=== PATIENT | female | born 1990 | race African-American/Black ===

== ENCOUNTER 2016-11-29 23:23 | Observation (INO) | payer MEDICAID ==
[~2016-11-29] VITALS: Ht 160 cm; Wt 75.0 kg
[~2016-11-29 23:23] MED LIST: PANT20 PO; TYLE325T PO
[2016-11-29 23:24] VITALS: BP 144/78; PULSE 53; RESP 16; TEMP 97.9; O2SAT 100
[2016-11-30] VITALS (8 sets, daily range): BP systolic 86–123; BP diastolic 56–79; PULSE 46–79; RESP 17–20; TEMP 96.4–98.3; O2SAT 97–100
[2016-11-30] MEDS ORDERED: SODIUM CHLOR 0.9% 1000 ML INJ 1,000 ML IV SCH (00:52)
--- NOTE | 2016-11-30 00:54 | PD ---
HPI Chief Complaint: GI Complaint Time Seen by Provider: 00:49 Travel History International Travel<30 days: No Contact w/Intl Traveler<30days: No Traveled to known affect area: No History of Present Illness HPI 25-year-old female here for evaluation of right upper quadrant abdominal pain, nausea, and vomiting. Symptoms started 2 hours ago while burping her baby. Pain is described as pressure, moderate, constant, worse with movement and palpation, associated with nausea and a few episodes of vomiting. She was told to the past that she has gallstones. No history of abdominal surgeries. No fevers or chills. No urinary symptoms. No vaginal bleeding or discharge. PFSH Past Medical History Hx Anticoagulant Therapy: No Anemia: Yes Cardiovascular Problems: No Chemotherapy: No Cerebrovascular Accident: No Diabetes: No Diminished Hearing: No Gastrointestinal Disorders: Yes GERD: Yes Headaches: Yes Respiratory: No Immunizations Current: Yes Ulcer: Yes Tetanus Vaccination: Unknown ?: Unknown LMP: 11/11/2016 Menopausal: No : 7 Para: 4 Miscarriage: 3 Ovarian Cysts: Yes Past Surgical History Surgical History: No Previous Surgery Social History Alcohol Use: Yes (occasional ETOH) Tobacco Use: Yes (socially) Substance Use: No Allergies-Medications (Allergen,Severity, Reaction): Coded Allergies: No Known Allergies (Verified , 11/29/16) Reported Meds & Prescriptions Reported Meds & Active Scripts Active No Active Prescriptions or Reported Medications Review of Systems Except as stated in HPI: all other systems reviewed are Neg Physical Exam Narrative GENERAL: Pleasant, well-developed, well-nourished, comfortable, no acute distress. SKIN: Warm and dry. No rash. HEAD: Atraumatic. Normocephalic. EYES: Pupils equal and round. No scleral icterus. No injection or drainage. ENT: Mucous membranes pink and moist. NECK: Trachea midline. No JVD. CARDIOVASCULAR: Regular rate and rhythm. No murmur appreciated. RESPIRATORY: No accessory muscle use. Clear to auscultation. Breath sounds equal bilaterally. GASTROINTESTINAL: Abdomen soft, nondistended. Moderate right upper quadrant tenderness with Geller sign without peritoneal signs. Rest of abdomen is soft and nontender. Normal bowel sounds. MUSCULOSKELETAL: No obvious deformities. No clubbing. No cyanosis. No edema. NEUROLOGICAL: Awake and alert. No obvious cranial nerve deficits. Motor grossly within normal limits. Normal speech. PSYCHIATRIC: Appropriate mood and affect; insight and judgment normal. Data Data Last Documented VS Vital Signs Date Time Temp Pulse Resp B/P Pulse Ox O2 Delivery O2 Flow Rate FiO2 11/30/16 00:44 46 18 117/79 100 Room Air 11/29/16 23:24 97.9 Orders Beta Hcg (Quant/Titer) (11/30/16 00:52) Complete Blood Count With Diff (11/30/16 00:52) Comprehensive Metabolic Panel (11/30/16 00:52) Lipase (11/30/16 00:52) Prothrombin Time / Inr (Pt) (11/30/16 00:52) Act Partial Throm Time (Ptt) (11/30/16 00:52) Urinalysis - C+S If Indicated (11/30/16 00:52) Us Abdomen Gallbladder (11/30/16 ) Iv Access Insert/Monitor (11/30/16 00:52) Ecg Monitoring (11/30/16 00:52) Oximetry (11/30/16 00:52) Morphine Inj (Morphine Inj) (11/30/16 01:00) Ondansetron Inj (Zofran Inj) (11/30/16 01:00) Sodium Chlor 0.9% 1000 Ml Inj (Ns 1000 M (11/30/16 00:52) Sodium Chloride 0.9% Flush (Ns Flush) (11/30/16 01:00) Diphenhydramine Inj (Benadryl Inj) (11/30/16 02:15) Labs Laboratory Tests Test 11/30/16 01:00 White Blood Count 7.3 TH/MM3 Red Blood Count 4.10 MIL/MM3 Hemoglobin 11.5 GM/DL Hematocrit 35.5 % Mean Corpuscular Volume 86.6 FL Mean Corpuscular Hemoglobin 28.1 PG Mean Corpuscular Hemoglobin 32.4 % Concent Red Cell Distribution Width 15.2 % Platelet Count 267 TH/MM3 Mean Platelet Volume 9.6 FL Neutrophils (%) (Auto) 65.6 % Lymphocytes (%) (Auto) 24.7 % Monocytes (%) (Auto) 8.9 % Eosinophils (%) (Auto) 0.5 % Basophils (%) (Auto) 0.3 % Neutrophils # (Auto) 4.8 TH/MM3 Lymphocytes # (Auto) 1.8 TH/MM3 Monocytes # (Auto) 0.6 TH/MM3 Eosinophils # (Auto) 0.0 TH/MM3 Basophils # (Auto) 0.0 TH/MM3 CBC Comment DIFF FINAL Differential Comment Prothrombin Time 11.5 SEC Prothromb Time International 1.0 RATIO Ratio Activated Partial 27.2 SEC Thromboplast Time Sodium Level 143 MEQ/L Potassium Level 3.5 MEQ/L Chloride Level 109 MEQ/L Carbon Dioxide Level 26.7 MEQ/L Anion Gap 7 MEQ/L Blood Urea Nitrogen 12 MG/DL Creatinine 0.86 MG/DL Estimat Glomerular Filtration 97 ML/MIN Rate Random Glucose 94 MG/DL Calcium Level 8.8 MG/DL Total Bilirubin 0.2 MG/DL Aspartate Amino Transf 18 U/L (AST/SGOT) Alanine Aminotransferase 18 U/L (ALT/SGPT) Alkaline Phosphatase 64 U/L Total Protein 7.4 GM/DL Albumin 3.9 GM/DL Lipase 144 U/L Human Chorionic Gonadotropin, LESS THAN 1 Quant MIU/ML MDM Medical Decision Making Medical Screen Exam Complete: Yes Emergency Medical Condition: Yes Medical Record Reviewed: Yes Differential Diagnosis Cholelithiasis, cholecystitis, pancreatitis, pyelonephritis/UTI, Narrative Course Vital signs reviewed. CBC is unremarkable. CMP is unremarkable. Lipase is 144. Beta hCG is negative. UA Right upper quadrant ultrasound: Cholelithiasis, gallbladder wall measuring 4 mm, pericholecystic fluid, findings consistent with cholecystitis. Case discussed with on-call general surgeon Dr. Orellana. The patient will be started on Zosyn. She will be admitted to his service and he will see her in the morning and discuss surgical options with the patient. Patient was made aware of all findings and plan for admission. Diagnosis Primary Impression: Cholecystitis Admitting Information Admitting Physician Requests: Observation Scripts No Active Prescriptions or Reported Meds Wilver Tavera MD Nov 30, 2016 00:54
[2016-11-30] MEDS ORDERED: SODIUM CHLORIDE 0.9% FLUSH 5 ML FLUSH IVF PRN ×2 (01:00→03:00)
[2016-11-30] MEDS ORDERED: MORPHINE SULFATE 4 MG/ML INJ IV PUSH ONE (01:00)
[2016-11-30] MEDS ORDERED: ONDANSETRON HCL 4 MG/2 ML VIAL IVP ONE (01:00)
[2016-11-30 01:26] LABS: AUTOMATED NEUTROPHIL # 4.8 TH/MM3 (1.8-7.7); BASOPHIL % 0.3 % (0.0-2.0); EOSINOPHIL % 0.5 % (0.0-4.0); HEMATOCRIT 35.5 % (35.0-46.0); HEMO FLAGS DIFF FINAL; LYMPH % 24.7 % (9.0-44.0); LYMPHOCYTE # 1.8 TH/MM3 (1.0-4.8); MEAN CELL VOLUME 86.6 FL (80.0-100.0); MEAN CORPUSCULAR HEMOGLOBIN 28.1 PG (27.0-34.0); MEAN CORPUSCULAR HGB CONC 32.4 % (32.0-36.0); MONO % 8.9 % (0.0-8.0); NEUT % 65.6 % (16.0-70.0); PLATELET COUNT 267 TH/MM3 (150-450); RED CELL DISTRIBUTION WIDTH 15.2 % (11.6-17.2); WHITE BLOOD COUNT 7.3 TH/MM3 (4.0-11.0)
[2016-11-30 01:34] LABS: APTT (PATIENT) 27.2 SEC (24.3-30.1); PROTHROMBIN TIME - PATIENT 11.5 SEC (9.8-11.6)
[2016-11-30 01:42] LABS: ALT (GPT) 18 U/L (10-53); ANION GAP 7 MEQ/L (5-15); AST (GOT) 18 U/L (15-37); BICARBONATE 26.7 MEQ/L (21.0-32.0); BLOOD UREA NITROGEN 12 MG/DL (7-18); CHLORIDE 109 MEQ/L (98-107); GLOMERULAR FILTRATION RATE 97 ML/MIN (>89); POTASSIUM 3.5 MEQ/L (3.5-5.1); SODIUM (NA) 143 MEQ/L (136-145)
[2016-11-30 01:46] LABS: ALKALINE PHOSPHATASE 64 U/L (45-117); BETA HCG QUANT LESS THAN 1 MIU/ML (0-5); TOTAL BILIRUBIN ADULT 0.2 MG/DL (0.2-1.0)
[2016-11-30] MEDS ORDERED: diphenhydrAMINE HCL 50 MG/ML VIAL IV PUSH ONE (02:15)
--- NOTE | 2016-11-30 02:46 | RADRPT ---
EXAM DATE/TIME: 11/30/2016 01:43 [facility] COMPARISON: No previous studies available for comparison. INDICATIONS : Abdominal pain. MEDICAL HISTORY : Ovarian cysts. SURGICAL HISTORY : None. ENCOUNTER: Initial ACUITY: 1 day PAIN SCORE: 3/10 LOCATION: Right upper quadrant MEASUREMENTS: LIVER: 17.4 cm length COMMON DUCT: 3 mm RIGHT KIDNEY: 11.2 x 4.9 x 4.2 cm FINDINGS: Multiple gallstones are present with a tiny trace of pericholecystic fluid and gallbladder wall measu res 4 mm. The liver is unremarkable. CONCLUSION: Cholelithiasis and findings may represent cholecystitis. Dominic Castillo MD on November 30, 2016 at 2:43 Board Certified Radiologist. This report was verified electronically.
[2016-11-30] MEDS ORDERED: PIPERACIL-TAZO 3.375 GM PREMIX 50 ML IV ONE (03:00)
[2016-11-30 03:29] LABS: BACTERIA, URINE RARE /hpf; BLOOD, URINE NEG (NEG); COMMENT (UR) CULT NOT INDICATED; CULTURE IF INDICATED CULT NOT INDICATED; GLUCOSE,URINE NEG (NEG); KETONE, URINE NEG (NEG); MUCUS URINE FEW /lpf (OCC); NITRITE,URINE NEG (NEG); PH, URINE 8.5 (5.0-8.5); SQUAMOUS EPITHELIAL CELL URINE 21 /hpf (0-5); URINE COLOR YELLOW (YELLW/STRAW)
--- NOTE | 2016-11-30 08:44 | MH ---
cc: KOBY ORELLANA M.D. DATE OF ADMISSION: 11/30/2016 REASON FOR ADMISSION Acute cholecystitis. HISTORY OF PRESENT ILLNESS This is a 25-year-old female who recently had a child. She has had problems with her gallbladder, biliary colic type symptoms for sometime. One time somebody told her she had ulcers. She then began having exacerbation of her symptoms, right upper quadrant pain, nausea, vomiting, back pain. She came to the emergency room. An ultrasound was done showing cholelithiasis. The ER physician asked me to take over her care. Presently the patient is in the emergency room fairly comfortable, still having some mild right upper quadrant pain. She has received some antibiotics. PAST MEDICAL HISTORY Recent . She has had occasional headaches and these abdominal symptoms. She was told that she had an ulcer, but really it was gallstones. No cardiac or pulmonary issues. GI issue as above. Last menstrual period was November 11. test negative. ALLERGIES She is not allergic to anything. MEDICATIONS No medications in the computer. She denies any medications. PHYSICAL EXAMINATION GENERAL: She is resting comfortably. She is a young, healthy-appearing -[place] female. NECK: Supple. CHEST: Clear. HEART: Regular rate. ABDOMEN: with mild soreness in the right upper quadrant. No rebound or guarding. EXTREMITIES: Moves all extremities well. No cyanosis or edema. LABORATORY DATA White count 7, H&H 11 and 35. Chemistry showed LFTs all normal. BMP normal. HCG is less than 1. IMAGING Imaging studies show gallstones. She had an ultrasound done in September of last year showing gallstones. ASSESSMENT A 25-year-old female with symptomatic cholelithiasis, cholecystitis. PLAN Laparoscopic cholecystectomy. This was explained to the patient in detail. She appeared to understand. Will try to arrange some time in the operating room as soon as possible. Koby Orellana MD JDB/ZACK /8:14 AM /8:33 AM
[2016-11-30] MEDS: SODIUM CHLORIDE 0.9% FLUSH 5 ML FLUSH IVF SCH ×2 (09:00→21:00)
[2016-11-30] MEDS ORDERED: BUPIVACAINE/EPINEPHRINE 0.25% PF 30 ML VIAL ONE (09:38)
[2016-11-30] MEDS ORDERED: MIDAZOLAM HCL 2 MG/2 ML VIAL ONE (10:16)
[2016-11-30] MEDS ORDERED: DEXAMETHASONE SOD PHOS 4 MG/ML VIAL ONE (10:16)
[2016-11-30] MEDS ORDERED: SUGAMMADEX SODIUM 200 MG/2 ML VIAL IV PUSH ONE ×2 (10:16)
[2016-11-30] MEDS ORDERED: FAMOTIDINE 20 MG/2 ML VIAL ONE (10:16)
[2016-11-30] MEDS ORDERED: ACETAMINOPHEN 1000 MG/100 ML VIAL IV ONE (10:16)
[2016-11-30] MEDS ORDERED: fentaNYL CITRATE 250 MCG/5 ML AMP ONE (10:17)
--- NOTE | 2016-11-30 11:44 | HHI.PR ---
Immediate Post Op Note Procedure Date: Nov 30, 2016 Pre Op Diagnosis: (1) Cholelithiasis (2) Cholecystitis Post Op Diagnosis: (1) Cholelithiasis (2) Cholecystitis Surgeon: Dario Logan Hot Stone Setter(s): none Procedure: Lap Amanda Findings: acute cholecystitis Complications: none Specimen(s) removed: GB Estimated blood loss: 10ml Anesthesia: General, Local Drains: None IVF Patient to: PACU Patient Condition: Good Dario Logan MD Nov 30, 2016 11:44
[2016-11-30] MEDS ORDERED: ACETAMINOPHEN/HYDROcodone 325 MG/5 MG TAB PO PRN (11:45)
[2016-11-30] MEDS ORDERED: MORPHINE SULFATE 4 MG/ML INJ IV PUSH PRN (11:45)
[2016-11-30] MEDS ORDERED: *MEPERIDINE 25 MG INJ VIAL PERIprocedural Use ONLY ONE (11:47)
[2016-11-30] MEDS ORDERED: DO NOT ADM ANY ANTICOAGULANT DRUGS XX PRN (12:00)
[2016-11-30] MEDS ORDERED: ONDANSETRON HCL 4 MG/2 ML VIAL IV PUSH ONE ×2 (12:00→19:00)
[2016-11-30] MEDS ORDERED: PROPOFOL 200 MG/20 ML AMP IV ONE (12:00)
[2016-11-30] MEDS ORDERED: NEOSTIGMINE 3 MG/3 ML SYR IV ONE (12:00)
[2016-11-30] MEDS ORDERED: *morphine SULFATE 8 MG/ML PERIprocedure ONLY ONE (12:18)
[2016-11-30] MEDS ORDERED: *ONDANSETRON 4 MG VIAL PERIprocedural Use ONLY ONE (13:52)
[2016-11-30] MEDS: ACETAMINOPHEN/HYDROcodone 325 MG/5 MG TAB PO PRN (18:25)
[2016-11-30] MEDS ORDERED: PROMETHAZINE HCL 25 MG TAB PO PRN ×2 (19:00→19:15)
[2016-11-30] MEDS ORDERED: ONDANSETRON HCL 4 MG/2 ML VIAL IV PRN (19:00)
[2016-11-30] MEDS ORDERED: ONDANSETRON HCL 4 MG/2 ML VIAL IV PUSH PRN (19:15)
[2016-12-01] VITALS: BP 102/57; PULSE 52; RESP 20; TEMP 97.8; O2SAT 99
[2016-12-01] MEDS: ACETAMINOPHEN/HYDROcodone 325 MG/5 MG TAB PO PRN ×2 (01:50→07:42)
[2016-12-01 08:00] VITALS: BP 100/59; PULSE 52; RESP 17; TEMP 97; O2SAT 99
[2016-12-01] MEDS: SODIUM CHLORIDE 0.9% FLUSH 5 ML FLUSH IVF SCH (09:00)
[2016-12-01 12:00] VITALS: BP 100/51; PULSE 62; RESP 16; TEMP 98.5; O2SAT 98
--- NOTE | 2016-12-01 13:50 | HHI.PR ---
Subjective Subjective Notes pain ok, tolerating PO Objective Vitals/I&O Vital Signs Date Time Temp Pulse Resp B/P Pulse Ox O2 Delivery O2 Flow Rate FiO2 12/01/16 12:00 98.5 62 16 100/51 98 11/30/16 16:50 Room Air 11/30/16 12:38 2.00 Cardiovascular: Regular Lungs: Clear Abdomen: Non-distended, Non-tender A/P Assessment and Plan 25yo s/p lap gasper, stable incisions ok fariha PO pain ok DC home today Dario Logan MD Dec 01, 2016 13:49
[2016-12-01] MEDS ORDERED: NORC5TAB PO (14:00)
--- NOTE | 2016-12-04 19:27 | MP ---
cc: JOAN BURKS DATE OF SURGERY: 11/30/2016 PREOPERATIVE DIAGNOSIS: Acute cholecystitis POSTOPERATIVE DIAGNOSIS Acute cholecystitis. PROCEDURE Laparoscopic cholecystectomy. ATTENDING PHYSICIAN MD Desmond. DATA MIGRATION CONSULTANT: None. ANESTHESIA General FINDINGS Mildly inflamed gallbladder with cholelithiasis. COMPLICATIONS None INDICATIONS FOR PROCEDURE The patient is a 25-year-old female with recurrent right upper quadrant pain that was severe last night and then to the emergency Susan's found have cholelithiasis and. The right upper quadrant pain. Risks, benefits, alternatives to laparoscopic cholecystectomy for treatment of her acute cholecystitis were discussed with the patient in detail prior to procedure. The patient agreed to undergo the procedure. PROCEDURE After informed consent was obtained the patient was taken to the operating room placed in supine position, placed under general endotracheal anesthesia. The patient's abdomen was prepped and draped in sterile fashion. There was entered through a Galeas direct entry technique with a curvilinear incision below the umbilicus. 0.25% Marcaine was used at all port sites. We then able to directly opened the fascia just to the left of the midline over the rectus muscle and entered the abdomen bluntly and under direct visualization. Placed a 10-mm port under direct visualization through the fascia and insufflated the abdomen. We Surveyed the abdomen with a 5 mm third degree camera was no evidence of any complication from our entry. We placed a 10-mm port in the subxiphoid position and two 5 mm ports in the right upper quadrant under direct visualization laparoscope. Then able to grasp the gallbladder retracted upward. Was a mildly inflamed, and had many stones in the gallbladder but there is minimal chronic changes. We then able to use the hook electrocautery to take down the visceral peritoneum and dissect out the triangle AMAURI along with the [place] dissector as well. We did the critical view of safety was obtained. We doubly clipped the cystic duct proximal single distal and clipped the cystic artery single proximal single distal and lateral of the strict structures with laparoscopic Endo camila. The hook electrocautery used the gallbladder off the gallbladder fossa of the gallbladder was removed with the abdomen to the subxiphoid point with the EndoCatch bag. The patient this point in time because there is no evidence of any bile leak or bleeding or any complication. There is no evidence of any and intra-abdominal pathology. Removed all our ports under visualization laparoscope and expressed pneumoperitoneum. We closed the fascia of the subxiphoid port and the periumbilical port with [id number] Vicryl sutures. Closed the skin with 4-0 Monocryl and Dermabond. The patient was discontinued anesthesia taken to PACU in stable condition. The patient tolerated procedure well. No apparent complications. All counts were correct. I was present throughout the entire procedure. MD LEDY Calero/carolynn /11:58 AM /7:21 PM
== END 2016-12-01 15:10 | disposition home or self-care (01) ==
LOC: NEPE 23:23 → NEDA 11-30 03:00 → NEDH 11-30 06:51 → N07B 11-30 17:05
PROVIDERS: ADMIT Surgery; ATTEND Surgery
DX: K80.10 Calculus of gallbladder with chronic cholecystitis without obstruction (principal); K21.9 Gastro-esophageal reflux disease without esophagitis; Z72.0 Tobacco use
CPT/HCPCS: 00790; 47562; 76705; 80053; 81001; 83690; 84702; 85025; 85610; 85730; 88304; 96361; 96374; 96375; 99285; G0378; J0131; J1100; J1200; J2175; J2250; J2270; J2405; J2543; J2710; J3010; J7030

== ENCOUNTER 2017-06-30 20:45 | Emergency (ER) | payer MEDICAID ==
[~2017-06-30] VITALS: Ht 172.7 cm; Wt 75.0 kg
[~2017-06-30 20:45] MED LIST changes: +NORC5TAB PO; -PANT20 PO; -TYLE325T PO
[2017-06-30 20:46] VITALS: BP 112/80; PULSE 65; RESP 16; TEMP 98.6; O2SAT 99
[2017-07-01] MEDS ORDERED: SODIUM CHLOR 0.9% 1000 ML INJ 1,000 ML IV ONE (00:07)
[2017-07-01] MEDS ORDERED: SODIUM CHLORIDE 0.9% FLUSH 10 ML FLUSH IVF PRN (00:15)
[2017-07-01] MEDS ORDERED: PROCHLORPERAZINE INJ 10 MG/2 ML VIAL IM ONE (00:15)
--- NOTE | 2017-07-01 00:23 | PD ---
HPI . Vomiting Chief Complaint: GI Complaint Time Seen by Provider: 00:07 Travel History International Travel<30 days: No Contact w/Intl Traveler<30days: No Traveled to known affect area: No History of Present Illness HPI This is a 26 year old female, , LMP 04/25 who presents to the [place] ED with nausea and vomiting for the last 2 weeks and today she was unable to keep anything down. She states she has already had her first appointment. She does not have any abdominal pain, lightheadedness, vaginal spotting or cramping. She takes no medication and has no allergies. No exacerbating or relieving factors. PFSH Past Medical History Hx Anticoagulant Therapy: No Anemia: Yes Cardiovascular Problems: No Chemotherapy: No Cerebrovascular Accident: No Diabetes: No Diminished Hearing: No Gastrointestinal Disorders: Yes GERD: Yes Headaches: Yes Respiratory: No Immunizations Current: Yes Ulcer: Yes ?: LMP: 04/25/17 Menopausal: No : 7 Para: 4 Miscarriage: 3 Ovarian Cysts: Yes Past Surgical History Cholecystectomy: Yes Pacemaker: No Social History Alcohol Use: Yes (occasional ETOH) Tobacco Use: Yes (socially) Substance Use: No Allergies-Medications (Allergen,Severity, Reaction): Coded Allergies: No Known Allergies (Verified , 11/29/16) Reported Meds & Prescriptions Reported Meds & Active Scripts Active No Active Prescriptions or Reported Medications Review of Systems Except as stated in HPI: all other systems reviewed are Neg Gastrointestinal: Positive: Nausea, Vomiting Physical Exam Narrative GENERAL: The patient was sleeping on exam bed, she was not in any acute distress. She is alert and oriented x3. SKIN: Warm and dry.Good turgor. HEAD: Atraumatic. Normocephalic. EYES: Pupils equal and round. No jaundice. ENT: No nasal bleeding or discharge. Mucous membranes pink and moist. NECK: Trachea midline. CARDIOVASCULAR: Regular rate and rhythm. No murmurs. RESPIRATORY: No accessory muscle use. Clear to auscultation bilaterally. GASTROINTESTINAL: Abdomen soft, non-tender, nondistended. Bowel sounds present. MUSCULOSKELETAL: No obvious deformities. No edema. NEUROLOGICAL: Awake and alert. No obvious cranial nerve deficits. Motor grossly within normal limits. Normal speech. PSYCHIATRIC: Appropriate mood and affect; insight and judgment normal. Data Data Last Documented VS Vital Signs Date Time Temp Pulse Resp B/P (MAP) Pulse Ox O2 Delivery O2 Flow Rate FiO2 06/30/17 20:46 98.6 65 16 112/80 (91) 99 Room Air Orders Orders Basic Metabolic Panel (Bmp) (07/01/17 00:07) Urinalysis - C+S If Indicated (07/01/17 00:07) Iv Access Insert/Monitor (07/01/17 00:07) Ecg Monitoring (07/01/17 00:07) Oximetry (07/01/17 00:07) Sodium Chlor 0.9% 1000 Ml Inj (Ns 1000 M (07/01/17 00:07) Sodium Chloride 0.9% Flush (Ns Flush) (07/01/17 00:15) Ed Urine Pregnancytest Poc (07/01/17 00:07) Prochlorperazine Inj (Compazine Inj) (07/01/17 00:15) Labs Laboratory Tests Test 07/01/17 00:27 Urine Color YELLOW Urine Turbidity HAZY Urine pH 6.0 Urine Specific Almo 1.036 Urine Protein 30 mg/dL Urine Glucose (UA) NEG mg/dL Urine Ketones 150 mg/dL Urine Occult Blood NEG Urine Nitrite NEG Urine Bilirubin NEG Urine Urobilinogen 2.0 MG/DL Urine Leukocyte Esterase NEG Urine RBC 2 /hpf Urine WBC 2 /hpf Urine Squamous Epithelial Cells 15 /hpf Urine Mucus MANY /lpf Microscopic Urinalysis Comment CULT NOT INDICATED Blood Urea Nitrogen 9 MG/DL Creatinine 0.57 MG/DL Random Glucose 74 MG/DL Calcium Level 8.9 MG/DL Sodium Level 136 MEQ/L Potassium Level 3.3 MEQ/L Chloride Level 105 MEQ/L Carbon Dioxide Level 21.2 MEQ/L Anion Gap 10 MEQ/L Estimat Glomerular Filtration Rate 155 ML/MIN [facility] Medical Decision Making Medical Screen Exam Complete: Yes Emergency Medical Condition: Yes Differential Diagnosis , Hyperemesis gravidum, dehydration Narrative Course This is a 26 year old female who presents with 2 weeks of nausea and vomiting. She has not been able to keep food or water down today. Basic labs were ordered to assess hydration status. U/A was ordered. BMP Diagram 07/01/17 00:27 Calcium Level 8.9 UA is contaminated but does not appear infected. Urine is also concentrated. The patient has been treated here with IV fluids and antibiotics. She is now tolerating food and liquid. She will be discharged home. Diagnosis Primary Impression: Vomiting affecting , antepartum Med/Other Pt SpecificInfo: Prescription(s) given Scripts Promethazine (Phenergan) 25 Mg Tablet 25 MG PO Q6H Y for NAUSEA OR VOMITING, #30 TAB 0 Refills Prov: Emily Joel MD 07/01/17 Vitamins W/ Fe Aspart (Prenate Star 20-1 mg) 1 Tab Tab 1 TAB PO DAILY, #30 % Prov: Emily Joel MD 07/01/17 Disposition: DISCHARGE HOME Condition: Stable Emily Joel MD Jul 01, 2017 00:23
[2017-07-01 00:46] LABS: BLOOD, URINE NEG (NEG); COMMENT (UR) CULT NOT INDICATED; CULTURE IF INDICATED CULT NOT INDICATED; GLUCOSE,URINE NEG (NEG); KETONE, URINE 150 mg/dL (NEG); MUCUS URINE MANY /lpf (OCC); NITRITE,URINE NEG (NEG); SQUAMOUS EPITHELIAL CELL URINE 15 /hpf (0-5); URINE COLOR YELLOW (YELLW/STRAW)
[2017-07-01 00:57] LABS: BICARBONATE 21.2 MEQ/L (21.0-32.0); POTASSIUM 3.3 MEQ/L (3.5-5.1)
[2017-07-01] MEDS ORDERED: PROM25TA10 PO (02:20)
[2017-07-01] MEDS ORDERED: PREN1TAB18 PO (02:20)
[2017-07-01 02:31] VITALS: BP 104/61; PULSE 75; RESP 16; O2SAT 98
== END 2017-07-01 02:34 | disposition home or self-care (01) ==
LOC: NEPC 20:45
DX: O21.0 Mild hyperemesis gravidarum (principal); Z3A.00 Weeks of gestation of pregnancy not specified
CPT/HCPCS: 80048; 81001; 84703; 96360; 96372; 99283; J0780; J7030

== ENCOUNTER 2017-07-19 22:09 | Emergency (ER) | payer MEDICAID ==
[~2017-07-19] VITALS: Ht 157.5 cm; Wt 74.0 kg
[~2017-07-19 22:09] MED LIST changes: -NORC5TAB PO; +PREN1TAB18 PO; +PROM25TA10 PO
[2017-07-19 22:11] VITALS: BP 121/72; PULSE 73; RESP 16; TEMP 98.2; O2SAT 100
[2017-07-19 22:24] VITALS: TEMP 98.5
[2017-07-19] MEDS ORDERED: SODIUM CHLOR 0.9% 1000 ML INJ 1,000 ML IV ONE ×2 (22:30)
[2017-07-19] MEDS ORDERED: THIAMINE INJ 100 MG in SODIUM CHLORIDE 0.9% INJ 100 ML IV ONE (22:30)
[2017-07-19] MEDS ORDERED: ONDANSETRON HCL 4 MG/2 ML VIAL IV ONE (22:30)
--- NOTE | 2017-07-19 22:55 | PD ---
HPI Chief Complaint: GI Complaint Time Seen by Provider: 22:19 Travel History International Travel<30 days: No Contact w/Intl Traveler<30days: No Traveled to known affect area: No History of Present Illness HPI Is a 26-year-old woman who presents emergent ongoing nausea and vomiting. She' s had trouble with nausea and vomiting for weeks with this . She is about 11 weeks . She's had trouble with nausea and vomiting with all of her previous pregnancies. She is 8 para 4, 0, 3, 4. She'll little bit of bleeding at couple weeks ago but no bleeding since then. Minimal epigastric and chest burning. No pelvic cramping. No bleeding now. No urinary symptoms. No other complaints. She follows with Celina Dailey, registered midwife. History Past Medical History Narrative Medical Status post cholecystectomy Menopausal: No : 8 Para: 4 Social History Alcohol Use: Yes (occasional ETOH) Tobacco Use: No (socially) Allergies-Medications (Allergen,Severity, Reaction): Coded Allergies: No Known Allergies (Verified , 07/19/17) Reported Meds & Prescriptions Reported Meds & Active Scripts Active Phenergan (Promethazine HCl) 25 Mg Tablet 25 Mg PO Q6H PRN Prenate Star 20-1 mg ( Vitamins W/ Fe Aspart) 1 Tab Tab 1 Tab PO DAILY Review of Systems Except as stated in HPI: all other systems reviewed are Neg Physical Exam Narrative GENERAL: Well-appearing 26-year-old woman, some intermittent retching. Nontoxic appearing. SKIN: Focused skin assessment warm/dry. CARDIOVASCULAR: Regular rate and rhythm. No murmur appreciated. RESPIRATORY: No accessory muscle use. Clear to auscultation. Breath sounds equal bilaterally. GASTROINTESTINAL: Abdomen soft, non-tender, nondistended. Hepatic and splenic margins not palpable. MUSCULOSKELETAL: No obvious deformities. No edema. NEUROLOGICAL: Awake and alert. No obvious cranial nerve deficits. Motor grossly within normal limits. Normal speech. Data Data Last Documented VS Vital Signs Date Time Temp Pulse Resp B/P (MAP) Pulse Ox O2 Delivery O2 Flow Rate FiO2 07/19/17 22:24 98.5 07/19/17 22:11 73 16 100 Room Air Orders Orders Complete Blood Count With Diff (07/19/17 22:27) Comprehensive Metabolic Panel (07/19/17 22:27) Urinalysis - C+S If Indicated (07/19/17 22:27) Iv Access Insert/Monitor (07/19/17 22:27) Ed Poc Ultrasound (07/19/17 ) Sodium Chlor 0.9% 1000 Ml Inj (Ns 1000 M (07/19/17 22:30) Sodium Chlor 0.9% 1000 Ml Inj (Ns 1000 M (07/19/17 22:30) Ondansetron Inj (Zofran Inj) (07/19/17 22:30) Thiamine Inj (Thiamine Inj) (07/19/17 22:30) Labs Laboratory Tests Test 07/19/17 22:30 White Blood Count 6.7 TH/MM3 Red Blood Count 4.32 MIL/MM3 Hemoglobin 12.7 GM/DL Hematocrit 37.7 % Mean Corpuscular Volume 87.3 FL Mean Corpuscular Hemoglobin 29.3 PG Mean Corpuscular Hemoglobin Concent 33.5 % Red Cell Distribution Width 14.3 % Platelet Count 277 TH/MM3 Mean Platelet Volume 8.9 FL Neutrophils (%) (Auto) 52.4 % Lymphocytes (%) (Auto) 36.5 % Monocytes (%) (Auto) 9.9 % Eosinophils (%) (Auto) 0.6 % Basophils (%) (Auto) 0.6 % Neutrophils # (Auto) 3.5 TH/MM3 Lymphocytes # (Auto) 2.4 TH/MM3 Monocytes # (Auto) 0.7 TH/MM3 Eosinophils # (Auto) 0.0 TH/MM3 Basophils # (Auto) 0.0 TH/MM3 CBC Comment DIFF FINAL Differential Comment Blood Urea Nitrogen 7 MG/DL Creatinine 0.62 MG/DL Random Glucose 83 MG/DL Total Protein 8.4 GM/DL Albumin 3.9 GM/DL Calcium Level 9.4 MG/DL Alkaline Phosphatase 58 U/L Aspartate Amino Transf (AST/SGOT) 12 U/L Alanine Aminotransferase (ALT/SGPT) 16 U/L Total Bilirubin 0.5 MG/DL Sodium Level 138 MEQ/L Potassium Level 3.4 MEQ/L Chloride Level 104 MEQ/L Carbon Dioxide Level 22.2 MEQ/L Anion Gap 12 MEQ/L Estimat Glomerular Filtration Rate 141 ML/MIN [facility] Medical Decision Making Medical Screen Exam Complete: Yes Emergency Medical Condition: Yes Differential Diagnosis Nausea vomiting of , gastroenteritis, UTI, dehydration, other Narrative Course Medical decision making 26-year-old woman with , nausea vomiting, history of the same. Appears dehydrated. All medication not working. We'll give her some Zofran, IV fluids, thiamine, labs. Diagnosis Primary Impression: Nausea/vomiting in Additional Impression: Patient Instructions: General Instructions Additional Instructions: Take medications as prescribed. Follow-up with your primary doctor and your medical records specialist in one week. Return to the emergency department for any new or worsening symptoms. Med/Other Pt SpecificInfo: Prescription(s) given Scripts Ondansetron (Zofran) 4 Mg Tab 4 MG PO Q8HR for 7 Days, TAB 0 Refills Prov: Hernandez Lawler MD 07/19/17 Promethazine (Phenergan) 25 Mg Tablet 25 MG PO Q6H Y for NAUSEA OR VOMITING, #30 TAB 0 Refills Prov: Hernandez Lawler MD 07/19/17 Disposition: 01 DISCHARGE HOME Condition: Stable Hernandez Lawler MD Jul 19, 2017 22:55
[2017-07-19 22:59] LABS: AUTOMATED NEUTROPHIL # 3.5 TH/MM3 (1.8-7.7); BASOPHIL % 0.6 % (0.0-2.0); EOSINOPHIL % 0.6 % (0.0-4.0); HEMATOCRIT 37.7 % (35.0-46.0); HEMO FLAGS DIFF FINAL; LYMPH % 36.5 % (9.0-44.0); LYMPHOCYTE # 2.4 TH/MM3 (1.0-4.8); MEAN CELL VOLUME 87.3 FL (80.0-100.0); MEAN CORPUSCULAR HEMOGLOBIN 29.3 PG (27.0-34.0); MEAN CORPUSCULAR HGB CONC 33.5 % (32.0-36.0); MONO % 9.9 % (0.0-8.0); NEUT % 52.4 % (16.0-70.0); PLATELET COUNT 277 TH/MM3 (150-450); RED BLOOD COUNT 4.32 MIL/MM3 (4.00-5.30); RED CELL DISTRIBUTION WIDTH 14.3 % (11.6-17.2); WHITE BLOOD COUNT 6.7 TH/MM3 (4.0-11.0)
[2017-07-19 23:03] LABS: ALT (GPT) 16 U/L (10-53); ANION GAP 12 MEQ/L (5-15); AST (GOT) 12 U/L (15-37); BICARBONATE 22.2 MEQ/L (21.0-32.0); BLOOD UREA NITROGEN 7 MG/DL (7-18); CHLORIDE 104 MEQ/L (98-107); GLOMERULAR FILTRATION RATE 141 ML/MIN (>89); POTASSIUM 3.4 MEQ/L (3.5-5.1); SODIUM (NA) 138 MEQ/L (136-145)
[2017-07-19 23:06] LABS: ALKALINE PHOSPHATASE 58 U/L (45-117); TOTAL BILIRUBIN ADULT 0.5 MG/DL (0.2-1.0)
[2017-07-19] MEDS ORDERED: PROM25TA10 PO (23:23)
[2017-07-19] MEDS ORDERED: ZOFR4TAB PO (23:23)
[2017-07-20 00:16] LABS: BACTERIA, URINE OCC /hpf; BLOOD, URINE NEG (NEG); COMMENT (UR) CULT NOT INDICATED; CULTURE IF INDICATED CULT NOT INDICATED; GLUCOSE,URINE NEG (NEG); KETONE, URINE 150 mg/dL (NEG); MUCUS URINE MANY /lpf (OCC); NITRITE,URINE NEG (NEG); SQUAMOUS EPITHELIAL CELL URINE 9 /hpf (0-5); URINE COLOR YELLOW (YELLW/STRAW)
== END 2017-07-20 00:42 | disposition home or self-care (01) ==
LOC: NEPD 22:09
DX: O21.9 Vomiting of pregnancy, unspecified (principal); Z3A.11 11 weeks gestation of pregnancy
CPT/HCPCS: 80053; 81001; 85025; 96361; 96365; 96375; 99285; J2405; J3411; J7030

== ENCOUNTER 2017-07-31 01:25 | Emergency (ER) | payer MEDICAID ==
[~2017-07-31] VITALS: Ht 157.5 cm; Wt 69.0 kg
[~2017-07-31 01:25] MED LIST changes: +ZOFR4TAB PO
[2017-07-31 01:27] VITALS: BP 112/60; PULSE 119; RESP 16; TEMP 99.6; O2SAT 99
[2017-07-31] MEDS ORDERED: ACETAMINOPHEN 325 MG TAB PO ONE (01:45)
[2017-07-31] MEDS ORDERED: SODIUM CHLOR 0.9% 1000 ML INJ 1,000 ML IV ONE ×2 (01:45→03:00)
[2017-07-31] MEDS ORDERED: ONDANSETRON HCL 4 MG/2 ML VIAL IV ONE (01:45)
--- NOTE | 2017-07-31 01:51 | PD ---
HPI Chief Complaint: Cold / Flu Symptoms Time Seen by Provider: 01:42 Travel History International Travel<30 days: No Contact w/Intl Traveler<30days: No Traveled to known affect area: No History of Present Illness HPI The patient is a 26 year old female who presents to the [facility] emergency department with a history of chills, headache, and sore throat that began earlier today. She has had a clear nasal discharge. She denies having any cough. She is unsure whether she had a fever with this, as she has not checked her temperature. She has had n/v x2. She denies having any sick contacts. The patient is currently 13 weeks gestation. The patient reports that her headache is over her frontal sinuses and bilateral temples. She reports that the headache is similar to prior headaches that were diagnosed as tension headache. On review of systems, she denies having any neck pain, chest pain, shortness of breath, abdominal pain, diarrhea, urinary symptoms, or neurologic symptoms. The patient denies having any vaginal discharge or vaginal bleeding. [facility] Past Medical History Narrative Medical The patient's past medical history is significant for chronic back pain, tension headaches Hx Anticoagulant Therapy: No Anemia: Yes Cardiovascular Problems: No Chemotherapy: No Cerebrovascular Accident: No Diabetes: No Diminished Hearing: No Gastrointestinal Disorders: Yes GERD: Yes Headaches: Yes Respiratory: No Immunizations Current: Yes Ulcer: Yes ?: LMP: 04/25/17 Menopausal: No : 8 Para: 4 Miscarriage: 3 Ovarian Cysts: Yes Past Surgical History Narrative Surgical The patient's past surgical history is significant for a cholecystectomy. Cholecystectomy: Yes Pacemaker: No Social History Alcohol Use: Yes (occasional ETOH) Tobacco Use: No (socially) Substance Use: No Allergies-Medications (Allergen,Severity, Reaction): Coded Allergies: No Known Allergies (Verified , 07/31/17) Reported Meds & Prescriptions Reported Meds & Active Scripts Active Zofran (Ondansetron HCl) 4 Mg Tab 4 Mg PO Q8HR 7 Days Phenergan (Promethazine HCl) 25 Mg Tablet 25 Mg PO Q6H PRN Prenate Star 20-1 mg ( Vitamins W/ Fe Aspart) 1 Tab Tab 1 Tab PO DAILY Review of Systems Except as stated in HPI: all other systems reviewed are Neg General / Constitutional: No: Fever Eyes: No: Visual changes HENT: Positive: Headaches, Sore Throat, Rhinorrhea, No: Neck Stiffness, Neck Pain Cardiovascular: No: Chest Pain or Discomfort Respiratory: No: Cough, Shortness of Breath Gastrointestinal: Positive: Nausea, Vomiting, No: Abdominal Pain Genitourinary: No: Dysuria Musculoskeletal: No: Pain Skin: No Rash Neurologic: No: Weakness Psychiatric: No: Depression Endocrine: No: Polydipsia Hematologic/Lymphatic: No: Easy Bruising Physical Exam Narrative General: The patient is a well-developed well-nourished female in no acute distress. Head and Neck exam: Head is normocephalic atraumatic. Eyes: EOMI, pupils are equal round and reactive to light. Nose: Midline septum with pink mucous membranes Mouth: Dentition unremarkable. Moist mucus membranes. Posterior oropharynx is mildly erythematous. No tonsillar hypertrophy. Uvula midline. Airway patent. Neck: No palpable lymphadenopathy. No nuchal rigidity. No thyromegaly. Cardiovascular: Regular rate and rhythm without murmurs, gallops, or rubs. Lungs: Clear to auscultation bilaterally. No wheezes, rhonchi, or rales. Abdomen: Soft, without tenderness to palpation in all 4 quadrants of the abdomen. No guarding, rebound, or rigidity. Normal bowel sounds are audible. No tenderness on palpation of McBurney's point. Extremities: No clubbing, cyanosis, or edema. 2+ pulses in all 4 extremities. No calf tenderness on palpation. Back: No costovertebral angle tenderness to palpation. Neurologic Exam: Grossly nonfocal. Skin Exam: No rash noted. Intact skin that is warm and dry. Data Data Last Documented VS Vital Signs Date Time Temp Pulse Resp B/P (MAP) Pulse Ox O2 Delivery O2 Flow Rate FiO2 07/31/17 02:09 16 98 Room Air 07/31/17 01:27 99.6 119 Orders Orders Complete Blood Count With Diff (07/31/17 01:44) Comprehensive Metabolic Panel (07/31/17 01:44) C-Reactive Protein (Crp) (07/31/17 01:44) Lipase (07/31/17 01:44) Urinalysis - C+S If Indicated (07/31/17 01:44) Beta Hcg (Quant/Titer) (07/31/17 01:44) Group A Rapid Strep Screen (07/31/17 01:44) Iv Access Insert/Monitor (07/31/17 01:44) Ecg Monitoring (07/31/17 01:44) Oximetry (07/31/17 01:44) Sodium Chlor 0.9% 1000 Ml Inj (Ns 1000 M (07/31/17 01:45) Ondansetron Inj (Zofran Inj) (07/31/17 01:45) Acetaminophen (Tylenol) (07/31/17 01:45) Strep Culture (Group A) (07/31/17 02:00) Sodium Chlor 0.9% 1000 Ml Inj (Ns 1000 M (07/31/17 03:00) Potassium Chloride (Kcl) (07/31/17 03:00) Labs Laboratory Tests Test 07/31/17 01:55 07/31/17 02:46 White Blood Count 7.6 TH/MM3 Red Blood Count 3.78 MIL/MM3 Hemoglobin 11.4 GM/DL Hematocrit 33.2 % Mean Corpuscular Volume 87.6 FL Mean Corpuscular Hemoglobin 30.2 PG Mean Corpuscular Hemoglobin Concent 34.5 % Red Cell Distribution Width 14.2 % Platelet Count 214 TH/MM3 Mean Platelet Volume 9.7 FL Neutrophils (%) (Auto) 83.3 % Lymphocytes (%) (Auto) 6.8 % Monocytes (%) (Auto) 9.6 % Eosinophils (%) (Auto) 0.2 % Basophils (%) (Auto) 0.1 % Neutrophils # (Auto) 6.3 TH/MM3 Lymphocytes # (Auto) 0.5 TH/MM3 Monocytes # (Auto) 0.7 TH/MM3 Eosinophils # (Auto) 0.0 TH/MM3 Basophils # (Auto) 0.0 TH/MM3 CBC Comment DIFF FINAL Differential Comment Blood Urea Nitrogen 5 MG/DL Creatinine 0.65 MG/DL Random Glucose 90 MG/DL Total Protein 7.5 GM/DL Albumin 3.4 GM/DL Calcium Level 8.7 MG/DL Alkaline Phosphatase 56 U/L Aspartate Amino Transf (AST/SGOT) 16 U/L Alanine Aminotransferase (ALT/SGPT) 26 U/L Total Bilirubin 0.4 MG/DL Sodium Level 134 MEQ/L Potassium Level 3.2 MEQ/L Chloride Level 106 MEQ/L Carbon Dioxide Level 18.8 MEQ/L Anion Gap 9 MEQ/L Estimat Glomerular Filtration Rate 133 ML/MIN C-Reactive Protein 1.71 MG/DL Lipase 61 U/L Human Chorionic Gonadotropin, Quant 61810 MIU/ML Urine Color YELLOW Urine Turbidity HAZY Urine pH 6.0 Urine Specific [place] 1.029 Urine Protein 30 mg/dL Urine Glucose (UA) NEG mg/dL Urine Ketones 150 mg/dL Urine Occult Blood NEG Urine Nitrite NEG Urine Bilirubin NEG Urine Urobilinogen 4.0 MG/DL Urine Leukocyte Esterase SMALL Urine RBC 4 /hpf Urine WBC 2 /hpf Urine Squamous Epithelial Cells 10 /hpf Urine Bacteria FEW /hpf Urine Mucus MANY /lpf Microscopic Urinalysis Comment CULT NOT INDICATED MDM Medical Decision Making Medical Screen Exam Complete: Yes Emergency Medical Condition: Yes Medical Record Reviewed: Yes Differential Diagnosis Strep pharyngitis, versus viral pharyngitis, versus other viral syndrome Narrative Course During the course of the patients emergency department visit, the patients history, examination, and differential diagnosis were reviewed with the patient. The patient had IV access obtained and blood work sent for analysis. The patient was placed on a nuclear monitoring technician with oximetry and blood pressure monitoring. The patient was initially provided normal saline 1 L IV fluid bolus, Zofran 4 mg IV, Tylenol 650 by mouth 1. The patients laboratory studies were reviewed and remarkable for a CBC that shows a white count 7.6, hemoglobin 11.4, platelets 214 with 83.3 neutrophils, lymphocytes 6.8, monocytes 9.6. CMP is remarkable for a sodium of 134, potassium 3.2 which was supplemented orally with 40 mEq of potassium chloride, CO2 of 18.8, BUN 5, C-reactive protein 1.71, lipase 61, quantitative beta hCG is 66,899, urinalysis shows small leukocyte esterase, 4 rbc's, 2 PVCs, 10 squamous epithelial cells, few bacteria, culture not indicated. Given the bacteriuria and her the patient will be treated with a one- week course of Macrobid. The patient was instructed to take Tylenol as needed for discomfort. The patient is instructed to push fluids and get plenty of rest. The patient is resting comfortably and feels better, is alert and in no distress. The patients results and examination findings were discussed with the patient. The repeat examination is unremarkable and benign. The history, exam, diagnostic testing, and current condition do not suggest any significant pathology to warrant further testing, continued ED treatment, admission, or surgical evaluation at this point. The vital signs have been stable. The patient does not have uncontrollable pain, intractable vomiting, or other significant symptoms. The patient's condition is stable and appropriate for discharge. The patient will pursue further outpatient evaluation with a primary care physician or other designated or consulting physician as indicated in the discharge instructions. The patient expressed understanding and was agreeable with this plan. Diagnosis Primary Impression: Viral syndrome Additional Impression: Bacteriuria Referrals: Primary Care Physician 1 week Patient Instructions: General Instructions, Viral Syndrome (ED) Med/Other Pt SpecificInfo: Prescription(s) given Scripts Nitrofurantoin Monohydrate Macrocrystals (Macrobid) 100 Mg Cap 100 MG PO BID for Infection, #14 CAP 0 Refills Prov: Leslye Caceres MD 07/31/17 Disposition: 01 DISCHARGE HOME Condition: Stable Leslye Caceres MD Jul 31, 2017 01:50
[2017-07-31 02:09] VITALS: RESP 16; O2SAT 98
[2017-07-31 02:24] LABS: ALT (GPT) 26 U/L (10-53); ANION GAP 9 MEQ/L (5-15); AST (GOT) 16 U/L (15-37); BICARBONATE 18.8 MEQ/L (21.0-32.0); BLOOD UREA NITROGEN 5 MG/DL (7-18); CHLORIDE 106 MEQ/L (98-107); GLOMERULAR FILTRATION RATE 133 ML/MIN (>89); POTASSIUM 3.2 MEQ/L (3.5-5.1); SODIUM (NA) 134 MEQ/L (136-145)
[2017-07-31 02:28] LABS: AUTOMATED NEUTROPHIL # 6.3 TH/MM3 (1.8-7.7); BASOPHIL % 0.1 % (0.0-2.0); EOSINOPHIL % 0.2 % (0.0-4.0); HEMATOCRIT 33.2 % (35.0-46.0); HEMO FLAGS DIFF FINAL; LYMPH % 6.8 % (9.0-44.0); LYMPHOCYTE # 0.5 TH/MM3 (1.0-4.8); MEAN CELL VOLUME 87.6 FL (80.0-100.0); MEAN CORPUSCULAR HEMOGLOBIN 30.2 PG (27.0-34.0); MEAN CORPUSCULAR HGB CONC 34.5 % (32.0-36.0); MONO % 9.6 % (0.0-8.0); NEUT % 83.3 % (16.0-70.0); PLATELET COUNT 214 TH/MM3 (150-450); RED BLOOD COUNT 3.78 MIL/MM3 (4.00-5.30); RED CELL DISTRIBUTION WIDTH 14.2 % (11.6-17.2); WHITE BLOOD COUNT 7.6 TH/MM3 (4.0-11.0)
[2017-07-31 02:41] LABS: ALKALINE PHOSPHATASE 56 U/L (45-117); BETA HCG QUANT 66899 MIU/ML (0-5); TOTAL BILIRUBIN ADULT 0.4 MG/DL (0.2-1.0)
[2017-07-31] MEDS ORDERED: POTASSIUM CHLORIDE 20 MEQ CONTROLLED RELEASE TAB PO ONE (03:00)
[2017-07-31 03:08] LABS: BACTERIA, URINE FEW /hpf; BLOOD, URINE NEG (NEG); COMMENT (UR) CULT NOT INDICATED; CULTURE IF INDICATED CULT NOT INDICATED; GLUCOSE,URINE NEG (NEG); KETONE, URINE 150 mg/dL (NEG); MUCUS URINE MANY /lpf (OCC); NITRITE,URINE NEG (NEG); SQUAMOUS EPITHELIAL CELL URINE 10 /hpf (0-5); URINE COLOR YELLOW (YELLW/STRAW)
[2017-07-31] MEDS ORDERED: MACR100C2 PO (03:30)
== END 2017-07-31 04:01 | disposition home or self-care (01) ==
LOC: NEPE 01:25
DX: O98.511 Other viral diseases complicating pregnancy, first trimester (principal); B34.9 Viral infection, unspecified; R82.71 Bacteriuria; Z3A.13 13 weeks gestation of pregnancy
CPT/HCPCS: 80053; 81001; 83690; 84702; 85025; 86140; 87081; 87880; 96361; 96374; 99283; J2405; J7030

== ENCOUNTER 2017-08-04 02:43 | Emergency (ER) | payer MEDICAID ==
[~2017-08-04] VITALS: Ht 157.5 cm; Wt 69.0 kg
[~2017-08-04 02:43] MED LIST changes: +MACR100C2 PO
[2017-08-04 02:52] VITALS: BP 116/56; PULSE 68; RESP 16; TEMP 98.4; O2SAT 100
[2017-08-04] MEDS ORDERED: SODIUM CHLOR 0.9% 1000 ML INJ 1,000 ML IV ONE (03:15)
[2017-08-04] MEDS ORDERED: ONDANSETRON HCL 4 MG/2 ML VIAL IV ONE (03:15)
--- NOTE | 2017-08-04 03:27 | PD ---
HPI Chief Complaint: GI Complaint Time Seen by Provider: 02:57 Travel History International Travel<30 days: No Contact w/Intl Traveler<30days: No Traveled to known affect area: No History of Present Illness HPI A 26-year-old woman, about 14 weeks , presents emergent from nausea vomiting. She is 8 para 4, 0, 3, 4. She is a trouble with nausea vomiting throughout this , and with multiple previous pregnancies. She is taking Zofran and promethazine at home without significant relief. She states is been 2 days and showed no acute bony down. No abdominal pain. No vaginal bleeding. No pelvic cramping. History Past Medical History Narrative Medical Status post cholecystectomy Influenza Vaccination: No Menopausal: No : 8 Para: 4 Social History Alcohol Use: Yes (occasional ETOH) Tobacco Use: No (socially) Allergies-Medications (Allergen,Severity, Reaction): Coded Allergies: No Known Allergies (Verified , 08/04/17) Reported Meds & Prescriptions Reported Meds & Active Scripts Active Macrobid (Nitrofurantoin Monoh/Nitrofur Macro) 100 Mg Cap 100 Mg PO BID Zofran (Ondansetron HCl) 4 Mg Tab 4 Mg PO Q8HR 7 Days Phenergan (Promethazine HCl) 25 Mg Tablet 25 Mg PO Q6H PRN Prenate Star 20-1 mg ( Vitamins W/ Fe Aspart) 1 Tab Tab 1 Tab PO DAILY Review of Systems Except as stated in HPI: all other systems reviewed are Neg Physical Exam Narrative GENERAL: Well-appearing 26 showed woman, no acute distress. SKIN: Focused skin assessment warm/dry. CARDIOVASCULAR: Regular rate and rhythm. No murmur appreciated. RESPIRATORY: No accessory muscle use. Clear to auscultation. Breath sounds equal bilaterally. GASTROINTESTINAL: Abdomen soft, non-tender, nondistended. Hepatic and splenic margins not palpable. MUSCULOSKELETAL: No obvious deformities. No clubbing. No cyanosis. No edema. NEUROLOGICAL: Awake and alert. No obvious cranial nerve deficits. Motor grossly within normal limits. Normal speech. PSYCHIATRIC: Appropriate mood and affect; insight and judgment normal. Data Data Last Documented VS Vital Signs Date Time Temp Pulse Resp B/P (MAP) Pulse Ox O2 Delivery O2 Flow Rate FiO2 08/04/17 02:58 16 08/04/17 02:52 98.4 68 116/56 (76) 100 Orders Orders Complete Blood Count With Diff (08/04/17 03:01) Comprehensive Metabolic Panel (08/04/17 03:01) Iv Access Insert/Monitor (08/04/17 03:01) Sodium Chlor 0.9% 1000 Ml Inj (Ns 1000 M (08/04/17 03:15) Ondansetron Inj (Zofran Inj) (08/04/17 03:15) Labs Laboratory Tests Test 08/04/17 03:05 White Blood Count 5.5 TH/MM3 Red Blood Count 3.90 MIL/MM3 Hemoglobin 11.3 GM/DL Hematocrit 34.2 % Mean Corpuscular Volume 87.6 FL Mean Corpuscular Hemoglobin 29.0 PG Mean Corpuscular Hemoglobin Concent 33.1 % Red Cell Distribution Width 14.0 % Platelet Count 243 TH/MM3 Mean Platelet Volume 9.8 FL Neutrophils (%) (Auto) 55.8 % Lymphocytes (%) (Auto) 32.9 % Monocytes (%) (Auto) 10.5 % Eosinophils (%) (Auto) 0.3 % Basophils (%) (Auto) 0.5 % Neutrophils # (Auto) 3.1 TH/MM3 Lymphocytes # (Auto) 1.8 TH/MM3 Monocytes # (Auto) 0.6 TH/MM3 Eosinophils # (Auto) 0.0 TH/MM3 Basophils # (Auto) 0.0 TH/MM3 CBC Comment DIFF FINAL Differential Comment Blood Urea Nitrogen 9 MG/DL Creatinine 0.54 MG/DL Random Glucose 88 MG/DL Total Protein 7.2 GM/DL Albumin 3.0 GM/DL Calcium Level 8.6 MG/DL Alkaline Phosphatase 70 U/L Aspartate Amino Transf (AST/SGOT) 29 U/L Alanine Aminotransferase (ALT/SGPT) 31 U/L Total Bilirubin 0.5 MG/DL Sodium Level 139 MEQ/L Potassium Level 3.1 MEQ/L Chloride Level 107 MEQ/L Carbon Dioxide Level 19.4 MEQ/L Anion Gap 13 MEQ/L Estimat Glomerular Filtration Rate 165 ML/MIN [facility] Medical Decision Making Medical Screen Exam Complete: Yes Emergency Medical Condition: Yes Differential Diagnosis Nausea vomiting of , dehydration, weakness, other Narrative Course Medical decision making 26-year-old woman with nausea vomiting, here for repeat evaluation. Looks mildly dehydrated. We'll give IV fluids and reassess. Patient's a little bit improved still fairly nauseous fluid like to be discharged home. Offered observation but declines. Diagnosis Primary Impression: Nausea/vomiting in Additional Instructions: Continue medications as prescribed. Follow-up with your OB doctor. Return to the emergency department for any new or worsening symptoms. Med/Other Pt SpecificInfo: Prescription(s) given Scripts Ondansetron (Zofran) 4 Mg Tab 4 MG PO Q8HR for 7 Days, TAB 0 Refills Prov: Hernandez Lawler MD 08/04/17 Promethazine (Phenergan) 25 Mg Tablet 25 MG PO Q6H Y for NAUSEA OR VOMITING, #30 TAB 0 Refills Prov: Hernandez Lawler MD 08/04/17 Disposition: 01 DISCHARGE HOME Condition: Stable Hernandez Lawler MD Aug 04, 2017 03:27
[2017-08-04 03:31] LABS: AUTOMATED NEUTROPHIL # 3.1 TH/MM3 (1.8-7.7); BASOPHIL % 0.5 % (0.0-2.0); EOSINOPHIL % 0.3 % (0.0-4.0); HEMATOCRIT 34.2 % (35.0-46.0); HEMO FLAGS DIFF FINAL; LYMPH % 32.9 % (9.0-44.0); LYMPHOCYTE # 1.8 TH/MM3 (1.0-4.8); MEAN CELL VOLUME 87.6 FL (80.0-100.0); MEAN CORPUSCULAR HGB CONC 33.1 % (32.0-36.0); MONO % 10.5 % (0.0-8.0); NEUT % 55.8 % (16.0-70.0); PLATELET COUNT 243 TH/MM3 (150-450); WHITE BLOOD COUNT 5.5 TH/MM3 (4.0-11.0)
[2017-08-04 03:48] LABS: ALT (GPT) 31 U/L (10-53); ANION GAP 13 MEQ/L (5-15); AST (GOT) 29 U/L (15-37); BICARBONATE 19.4 MEQ/L (21.0-32.0); BLOOD UREA NITROGEN 9 MG/DL (7-18); CHLORIDE 107 MEQ/L (98-107); GLOMERULAR FILTRATION RATE 165 ML/MIN (>89); POTASSIUM 3.1 MEQ/L (3.5-5.1); SODIUM (NA) 139 MEQ/L (136-145)
[2017-08-04 03:51] LABS: ALKALINE PHOSPHATASE 70 U/L (45-117); TOTAL BILIRUBIN ADULT 0.5 MG/DL (0.2-1.0)
[2017-08-04] MEDS ORDERED: PROM25TA10 PO (05:27)
[2017-08-04] MEDS ORDERED: ZOFR4TAB PO (05:27)
[2017-08-04 05:45] VITALS: BP 120/68
== END 2017-08-04 05:50 | disposition home or self-care (01) ==
LOC: NEPC 02:43
DX: O21.9 Vomiting of pregnancy, unspecified (principal); Z3A.14 14 weeks gestation of pregnancy
CPT/HCPCS: 80053; 85025; 96361; 96374; 99284; J2405; J7030

== ENCOUNTER 2017-08-08 10:56 | Emergency (ER) | payer MEDICAID ==
[~2017-08-08] VITALS: Ht 157.5 cm; Wt 69.0 kg
[2017-08-08 10:57] VITALS: BP 111/61; PULSE 76; RESP 16; TEMP 98.4; O2SAT 99
== END 2017-08-08 13:00 | disposition left against medical advice (07) ==
LOC: NED 10:56
DX: O26.899 Other specified pregnancy related conditions, unspecified trimester (principal); Z3A.00 Weeks of gestation of pregnancy not specified; Z53.21 Procedure and treatment not carried out due to patient leaving prior to being seen by health care provider
CPT/HCPCS: 99281